=== PATIENT | female | born 2000 | race Caucasian/White ===

== ENCOUNTER 2024-06-02 08:00 | Outpatient (RCR) | payer BC, SELFPAY ==
[2024-06-04 11:07] VITALS: BP 131/89; PULSE 78
== END 2024-06-25 23:59 ==
LOC: BHIOP 08:00
PROVIDERS: PCP Nurse Practitioner Primary Care; Referring Provider Psychiatry & Neurology Psychiatry; Visit Provider Psychiatry & Neurology Psychiatry
DX: F33.2 Major depressive disorder, recurrent severe without psychotic features (principal); F43.10 Post-traumatic stress disorder, unspecified; F42.9 Obsessive-compulsive disorder, unspecified; F63.3 Trichotillomania
CPT/HCPCS: S9480; 90834; 90837; 90853

== ENCOUNTER 2024-06-26 07:34 | Outpatient (RCR) | payer BC, SELFPAY ==
[2024-06-26 00:44] VITALS: BP 131/89; PULSE 78
== END 2024-07-16 12:41 | disposition home or self-care (01) ==
LOC: BHIOP 07:34
PROVIDERS: PCP Nurse Practitioner Primary Care; Referring Provider Psychiatry & Neurology Psychiatry; Visit Provider Psychiatry & Neurology Psychiatry
DX: F33.2 Major depressive disorder, recurrent severe without psychotic features (principal); F43.10 Post-traumatic stress disorder, unspecified; F42.9 Obsessive-compulsive disorder, unspecified; F63.3 Trichotillomania
CPT/HCPCS: S9480; 90837; 90853

== ENCOUNTER 2024-11-17 08:00 | Outpatient (RCR) | payer BC, SELFPAY ==
--- NOTE | 2024-11-17 10:15 | BH.SGPN.GN ---
Behaviors/Verbalizations/Mental Status: []Pt alert and oriented, casually dressed and groomed. Eye contact good. Motor activity appropriate. Speech within normal limits. Affect congruent, mood euthymic. Thoughts linear, logical, no signs of hallucinations or delusions. Client Response/Progress/Benefit: [] Pt participated during small group discussions. Attentive during psychoeducation about defense mechanisms. Showed engagement during small group discussions and helped group identify which defense mechanisms were maladaptive, adaptive, or ?somewhere in the tariq.? Pt worked with small group on identifying how each defense mechanism can impact mental health and gave examples. Group was mostly educational and pts discussed the different types of defense mechanisms. Pt reported benefits from identifying examples of different defense mechanisms and normalizing why they are used. Seemed to benefit from gaining awareness about the different defense mechanisms. Pt to continue IOP tx to prevent decompensation, improve distress tolerance skills, and improve daily functioning. ??? Narrative Note: []
--- NOTE | 2024-11-17 11:15 | BH.SGPN.GN ---
Behaviors/Verbalizations/Mental Status: []Pt alert and oriented, casually dressed and groomed. Eye contact good. Motor activity appropriate. Speech within normal limits. Affect congruent, mood content. Thoughts linear, logical, no signs of hallucinations or delusions. Client Response/Progress/Benefit: [] Pt responded well to session, participating in activity and small group discussion. Group reviewed the rest of the defense mechanisms and discussed how these are adaptive, maladaptive, or somewhere in the tariq. Pt's defense mechanisms included displacement and projection. Shared that these reinforce unhealthy coping mechanisms. Pt listened to portable machine cutter teach different skills to help pt?s cope with or change their defense mechanisms. Pt appeared to benefit from gaining insight to the different defense mechanisms and learning coping skills. Shared wanting to begin practicing more awareness of when using these defense mechanisms. Pt will continue IOP tx to prevent decompensation, improve distress tolerance skills, and increase emotion regulation. Narrative Note: []
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
--- NOTE | 2024-11-17 13:55 | BH.MTP ---
Master Treatment Plan Patient Information Program Physician:: Dr. Juan Pablo Warner Primary Therapist:: Kayleen REZA Psychiatric Diagnoses Psychiatric Diagnoses:: Major depressive disorder, recurrent, severe without psychosis F 33.2; PTSD; OCD; Trichotillomania (F63.3) Diagnosis Code(s):: F 33.2 Estimated LOS Estimated LOS (in weeks):: 6 Problem/Goal #1 Problem/Goal #1 Stated Goal:: Pt will decrease depressive symptoms, hopelessness, worthlessness, and negative self-talk. Description of Barriers: Pt has numerous psychosocial stressors that have been impacting pt and her over the year and pt feels like we can't get a break. Pt feels hopeless and has lost motivation. Pt has a strained relationship with her father and her 's family. Pt has limited support outside her . Functional Impact: Pt is a 24-year-old female with a history of MDD, OCD, and trichotillomania. Pt had completed [facility] in June 2024 and pt returns to [facility] following a referral from crisis due to suicidal ideations and worsening depression. Pt has evaluated by crisis on 10/28/24 while pt was at the ER at [place]. Pt's worsening symptoms have been triggered by financial stress, issues with her father, issues with her in-laws, and health issues. At admission, pt endorses a depressed mood, lack of motivation, lack of energy, loss of interest, passive SI, hopelessness, and crying spells. Pt reports inability to complete her ADLs and pt has not been able to work due to her worsening symptoms. Goal Relevant Strengths/Supports: Pt has support from her and he is her biggest protective factor. Pt has done well in therapy in the past. Objectives Objective #1: Stated Objective: Pt will learn and utilize 2-3 healthy coping strategies to better manage depressive symptoms as shown by a decrease of DMS-5 symptoms for depression and suicidal ideations. Interventions: Through group and individual sessions, therapist will help pt identify triggers and warning signs of depression and guilt including emotional, physical, and behavioral changes. Therapist will teach pt various coping skills to manage symptoms and give pt tangible resources to use to regulate emotions. Therapist will use cognitive restructuring techniques and help pt gain awareness of negative thoughts that reinforce guilt and depression. Therapist will provide psychoeducation on maintenance cycles and help pt learn ways to break unhealthy maintenance cycles. Therapist will help pt incorporate behavioral activation and assist pt in setting SMART goals. Discharge Criteria: Pt will have met this goal when can report learning and using at least 2 coping skills to manage depressive symptoms and reduce isolation. Additionally, pt will have met this goal when pt's DSM-5 scores for depression decrease. Target Date: 12/29/24 Review Date: 12/08/24 Status: open Objective #2: Stated Objective: Pt will identify at least 2-3 negative self-talk messages used to reinforce negative core beliefs, worthlessness, and hopelessness and replace thoughts with balanced, realistic messages. Interventions: Therapist will help pt identify distorted, negative beliefs about self and replace with more realistic, affirmative messages. Therapist will use CBT and DBT to help pt increase insight to the connection between thoughts, emotions, and behaviors. Therapist will encourage pt to practice thought challenging. Discharge Criteria: Pt will have achieved this goal when can verbalize at least 2 cognitive distortions and effectively replace those thoughts with affirmative messages. Target Date: 12/29/24 Review Date: 12/08/24 Status: open Problem/Goal #2 Problem/Goal #2 Stated Goal:: Will reduce anxiety symptoms and hair pulling through increasing emotional regulation and distress tolerance skills Description of Barriers: Pt has numerous psychosocial stressors that have been impacting pt and her over the year and pt feels like we can't get a break. Pt feels hopeless and has lost motivation. Pt has a strained relationship with her father and her 's family. Pt has limited support outside her . Functional Impact: Pt is a 24-year-old female with a history of MDD, OCD, and trichotillomania. Pt had completed IOP in June 2024 and pt returns to [facility] following a referral from crisis due to suicidal ideations and worsening depression. Pt has evaluated by crisis on 10/28/24 while pt was at the ER at [place]. Pt's worsening symptoms have been triggered by financial stress, issues with her father, issues with her in-laws, and health issues. At admission, pt endorses a depressed mood, lack of motivation, lack of energy, loss of interest, passive SI, hopelessness, and crying spells. Pt reports inability to complete her ADLs and pt has not been able to work due to her worsening symptoms. Goal Relevant Strengths/Supports: Pt has support from her and he is her biggest protective factor. Pt has done well in therapy in the past. Objectives Objective #1: Stated Objective: Pt will identify 2-3 anxiety/hair pulling triggers and 2 coping skills to use when feeling anxious or overwhelmed to manage anxiety as shown by reducing DSM-5 scores for anxiety Interventions: Therapist will provide education on anxiety, avoidance behaviors, and maintenance cycles. Therapist will help pt explore personal symptoms and warning signs of anxiety and Trichotillomania. Therapist will teach pt coping skills to improve emotional regulation, mindfulness, and distress tolerance to help pt cope with anxiety in the moment. Discharge Criteria: Pt will have accomplished this goal when she can identify at least 2 triggers and report using 2 coping skills to manage anxiety. Additionally, pt will have accomplished this goal AEB reduction of DSM-5 scores for anxiety Target Date: 12/29/24 Review Date: 12/08/24 Status: open Objective #2: Stated Objective: Pt will increase ability to manage stressors and anxiety by gaining 2-3 distress tolerance skills. Interventions: Through group and individual therapy, pt will learn various coping skills to help manage stress and anxiety. Therapist will utilize DBT distress tolerance skills to increase awareness and give pt tools to more effectively manage anxiety. Therapist will provide psychoeducation on emotional regulation and help pt identify unhealthy coping skills he wants to change. Discharge Criteria: Pt will have accomplished this goal when can report improved ability to manage stressors and identify at least 2 distress tolerance skills. Target Date: 12/29/24 Review Date: 12/08/24 Status: open
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
--- NOTE | 2024-11-17 15:46 | BH.COMM_ITS ---
Communication Note Communication with Client Communication Note: Met with pt to complete initial paperwork. Discussed case with Dr. Warner and pt will be admitted to [facility] tx with a diagnosis of F 33.2 MDD, recurrent, severe, without psychosis.
--- NOTE | 2024-11-20 09:05 | BH.SGPN.GN ---
Behaviors/Verbalizations/Mental Status: [] Eye contact is good. Motor activity is appropriate. Appearance is casual. Speech is Appropriate. Mood is euthymic. Affect is full. Thoughts are linear and logical. No evidence of psychosis. Reviewed daily check in sheet and pt reports 2/5 for suicidal thoughts. Client Response/Progress/Benefit: [] Pt was an active participant in group discussions. Attentive. Daily symptom tracker notes 5/5 for anxiety and 4/5 for depression. Tearful throughout check-in. She shared difficulties with extended support due in large part to disagreements on lutheran. She has set boundaries and feels they are not respecting them. This has caused significant tension. Pt believes that she is perceived as mean and as an instigator as she can often be direct in her conversation which can be misperceived. Proud of herself for utilizing skills during this conflict such as distraction and reframing. She relies heavily on her as support. She struggles with her thoughts when she is alone however yesterday was able to effectively manage negative thoughts. Increase confidence and resilience. Peers provided support, encouragement, and feedback which was helpful. Peers also shared similar experiences and empathized. Narrative Note: []
--- NOTE | 2024-11-20 10:15 | BH.SGPN.GN ---
Behaviors/Verbalizations/Mental Status: [] Eye contact is good. Motor activity is appropriate. Appearance is casual. Speech is Appropriate. Mood is dysthymic. Affect is congruent. Thoughts are linear and logical. No evidence of psychosis. Client Response/Progress/Benefit: [] Client engaged during group session as evidenced by contributions during group discussions, appearing to listen to others, and taking notes. Client engaged in discussion about barriers that keep people from having difficult conversations. Group identified potential reasons individuals avoid difficult conversations which included; feeling uncomfortable, reaction of others, fear, and avoiding conflict. Group also identified benefits to having crucial conversations. Pt identified things they do that impact their communication as communicating out of emotion or shutting down. Client seemed to benefit from increased awareness and education about importance of having difficult conversations and recognizing the impact of avoiding such conversations. Client to continue IOP to prevent decompensation, increase healthy coping, and improve functioning. Narrative Note: []
--- NOTE | 2024-11-20 11:15 | BH.SGPN.GN ---
Behaviors/Verbalizations/Mental Status: []Pt alert and oriented, casually dressed and groomed. Eye contact good. Motor activity appropriate. Speech within normal limits. Affect constricted, mood euthymic and anxious. Thoughts linear, logical, no signs of hallucinations or delusions. Client Response/Progress/Benefit: [] Pt was an active participant, engaged in activities and discussion. Pt able to identify ways they negatively contribute to crucial conversations and pt was engaged during psychoeducation of the different ways to build interpersonal effectiveness skills. Pt and peers practiced mirroring and active listening in partners. Group reviewed DEAR [employer] and used the handout to help map out how they would like a crucial conversation in their life to go. Pt shared she has learned today that she is allowed to ?call out my struggles? when in a crucial conversation to help clarify and be transparent. Pt wants to have a crucial conversation with family this weekend. Pt appeared to benefit from learning and practicing interpersonal effectiveness skills. Pt will continue IOP tx to prevent decompensation, improve daily functioning, and increase distress tolerance skills. Narrative Note: []
--- NOTE | 2024-11-21 07:42 | PCM.BH.PN_ITS ---
Intake Vital Signs 06/04/24 11:07 Height 5 ft 4 in Intake Allergies fluoxetine (From Prozac) Allergy (Verified 06/04/24 10:57) Hives risperidone (From Risperdal) Allergy (Verified 06/04/24 10:57) Swelling Medications ?Medication ?Instructions ?Recorded ?Confirmed ?Type hydroxyzine pamoate 25 mg capsule 25 mg PO Q8H PRN anx iety 06/04/24 06/04/24 History venlafaxine 150 mg 150 mg PO DAILY 30 days #30 caps 06/04/24 Rx capsule,extended release 24 hr (Effexor XR) aripiprazole 2 mg tablet (Abilify) 2 mg PO DAILY 30 da ys #30 tabs 06/18/24 Rx HPI () History of Present Illness HPI: Hellen Ball is a 24 year old female who presents today for new patient evaluation. Sleep: Interest: Guilt: Energy: Concentration: Appetite: Psychomotor: Suicide: Memory: Anxiety: Obsessions: Compulsions: Chantal: PTSD: Psychosis: denies history of auditory or visual hallucinations, denies disorga nized thoughts, denies disorganized speech Developmental History Developmental History: Siblings - Born/Raised - Education - Living Situation - Legal Issues - Employment - Other Substance Use History Nicotine- Alcohol- Marijuana- Stimulants- Opioids- Other- Visit Details Comments: Spent a total of [ ] minutes on the date of the service which included [ ].
--- NOTE | 2024-11-21 07:44 | BH.DR.ITP ---
Initial Treatment Plan Patient Information Visit Information: ADMISSION DATE: 11/21/2024 EXPECTED LOS: 4-6 weeks Problems/Symptoms Problem #1:: Depression Symptom:: Low mood, interpersonal conflict, poor motivation, low energy Problem #2:: Anxiety Symptom:: Panic type symptoms, nervousness, poor sleep Problem #3:: OCD Symptom:: Hair pulling, routine behavior, obsessions, compulsions
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
--- NOTE | 2024-11-21 09:05 | BH.SGPN.GN ---
Behaviors/Verbalizations/Mental Status: [] Eye contact is good. Motor activity is appropriate. Appearance is casual. Speech is Appropriate. Mood is euthymic. Affect is full. Thoughts are linear and logical. No evidence of psychosis. Reviewed daily check in sheet and pt reports 1/5 for suicidal thoughts which is within established baseline. Client Response/Progress/Benefit: [] Pt was an active participant in group discussions. Attentive. Daily symptom tracker notes 5/5 for anxiety and 4/5 for depression, though positive throughout check-in. Did well to identify 2 mental health wins, which included going to her sister?s volleyball game rather than isolating. Additional win noted as talking with her aunt and step-mom while there. Explained that she is estranged from her father and so was nervous about seeing her step-mom. Went better than expected and pt expressed pride in her use of distress tolerance. Stressor noted as having to spend time with her in-laws, whom pt is not getting along with, this weekend. Identified plans to discuss limiting her exposure to them with her . Appeared to benefit from provided support, encouragement, and feedback. Will continue IOP tx to improve self-confidence, assertive communication, and prevent decompensation. Narrative Note: []
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
[2024-11-21 12:42] VITALS: BP 137/89; PULSE 74
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
--- NOTE | 2024-11-25 11:10 | BH.SGPN.GN ---
Behaviors/Verbalizations/Mental Status: []Client alert and oriented, casually dressed and groomed. Eye contact good. Motor activity appropriate. Speech within normal limits. Affect congruent, mood anxious. Thoughts linear, logical, no signs of hallucinations or delusions Client Response/Progress/Benefit: [] Pt responded well to session, attentive. Did well to process activity and work with group to relate the strategies used to overcome barriers in the activity to managing change in own life. Pt identified a change they would like to make is better emotion regulation. Pt identified currently being in action stage for this change. Pt stated goal is to continue to practice skills. Appeared to benefit from identifying a small goal to work towards. Pt will continue IOP tx to prevent decompensation, improve daily functioning, and gain healthy coping skills. Narrative Note: []
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
== END 2024-11-25 23:59 ==
LOC: BHIOP 08:00
PROVIDERS: PCP Nurse Practitioner Primary Care; Referring Provider Student in an Organized Health Care Education/Training Program; Visit Provider Student in an Organized Health Care Education/Training Program
DX: F33.2 Major depressive disorder, recurrent severe without psychotic features (principal); F43.10 Post-traumatic stress disorder, unspecified; F63.3 Trichotillomania; F42.9 Obsessive-compulsive disorder, unspecified
CPT/HCPCS: S9480; 90832; 90834; 90853

== ENCOUNTER 2024-11-26 08:06 | Outpatient (RCR) | payer BC, SELFPAY ==
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
--- NOTE | 2024-11-26 10:10 | BH.SGPN.GN ---
Behaviors/Verbalizations/Mental Status: []Eye contact is good. Motor activity is appropriate. Appearance is casual. Speech is Appropriate. Mood is engaged. Affect is congruent. Thoughts are linear and logical. No evidence of psychosis. Client Response/Progress/Benefit: [] Pt receptive to session AEB listening attentively to others and taking notes. Pt attentive and contributed throughout psychoeducation on the cognitive triangle and maintenance cycles. Pt engaged during group discussion reviewing the impact of daily activities and behaviors in either reinforcing unhealthy maintenance cycles and depression or assisting in reducing symptoms (?down? vs ?up? activities). Pt participated during interactive discussion in which pt identified their own common up activities (being with her and practicing self-care) and down activities (isolating and not getting out of bed). Appeared to benefit from increased awareness of current behaviors and impact these have on mental health. Will continue IOP to prevent decompensation, improve daily functioning, and increase distress tolerance. ??? Narrative Note: []
--- NOTE | 2024-11-26 14:42 | BH.MDN ---
Multi-Disciplinary Note Note 45-min Individual: Time Started:: 11:20 Date: 11/26/24 Purpose of session/treatment goals addressed:: To review homework and work on behavioral activation skills. Eye Contact:: Good Motor Activity:: Appropriate Appearance:: Neat Speech:: Appropriate Mood:: Euthymic Affect:: Congruent Thoughts:: Linear, Logical and No evidence of hallucinations/delusions noted Staff Interventions:: thought challenging, CBT techniques, strengths perspective, taught coping skills (acceptance skills.) and other (reviewed homework and set goal to reach out to her friend) Client Response:: Pt responded well to session, open to meeting with therapist. Pt reports she went home yesterday and made my list of support we need. Pt shared that a lot of the support she needs is someone to be with me while I clean and make phone calls. Pt stated that she knows that once she starts these things, she will be able to get them accomplished. However, pt is currently experiencing lack of motivation most of the day, so it has been difficult to start. Pt shared it is also challenging at times because her best friends live out of state and she does not know where to go to build support. Processed barriers and potential ideas to overcome these barriers. Pt shared she would be willing to Facetime with one of her best friends while cleaning as this would motivate pt to get started. Pt also shared she is interested in further exploring spiritual communities, but pt feels that her moral and need for justice OCD is keeping her stuck from going to a lutheran. Pt gave the example of if I go to a lutheran that accepts all religions, does that mean I accept all the teachings from all the religions? Discussed acceptance skills and dialectical thinking that might help with this barrier. Pt acknowledges that she can work on sitting with the uncomfortable of the tariq instead of accepting all or nothing thoughts. Pt's mood was more hopeful today and pt left session with motivation per her report. Risks/Concerns:: Pt reports still having passive suicidal ideations, but pt reports feeling more hopeful today. Pt denies active SI, plan, or intent. Pt was future oriented during session and looking forward to talking to a friend. Progress Toward Goals/Plan:: Pt is responding well to IOP tx, pt has been receptive to ideations and pt reports benefitting from the social aspect. Pt's symptoms continue to interfere with her daily functioning and pt's has awareness that her perspective can shift from positive to negative quickly. Pt receptive to plan to reach out to a friend today and pt willing to work on small cleaning goals. Pt will continue IOP tx to prevent decompensation, improve daily functioning, and increase distress tolerance. Time Stopped:: 12:00
--- NOTE | 2024-12-01 09:05 | BH.SGPN.GN ---
Behaviors/Verbalizations/Mental Status: [] Eye contact is good. Motor activity is appropriate. Appearance is casual. Speech is Appropriate. Mood is depressed and anxious. Affect is congruent. Thoughts are linear and logical. No evidence of psychosis. Reviewed daily check in sheet and no reports of suicidal ideations or intent. Client Response/Progress/Benefit: [] Pt was an active participant in group discussions. Attentive. Daily symptom tracker notes 5 for depression and anxiety as well as 5 for self-harm urges. Able to identify mental health wins and healthy habits. Shared with the group that this weekend was a anniversary. Discussed her strategies for managing triggers and grief to prevent decompensation. She appears to have improved since last's week significant distress. Spent the weekend with support and completed self-care feeling accomplished. Putting effort into healthy strategies and healthy sleep routine. Mood today is indifferent. Benefited from group support, encouragement, and feedback. Will continue in IOP to maintain safety, prevent decompensation, increase healthy functioning, and improve functioning. Narrative Note: []
--- NOTE | 2024-12-01 10:15 | BH.SGPN.GN ---
Behaviors/Verbalizations/Mental Status: [] Pt alert and oriented, casually dressed and groomed. Eye contact good. Motor activity appropriate. Speech within normal limits. Affect congruent, mood dysthymic. Thoughts linear, logical, no signs of hallucinations or delusions. Client Response/Progress/Benefit: [] Pt participated in group discussions. Attentive during psychoeducation on the CBT [place] (Thoughts, Behaviors, Emotions). Engaged in group discussion on how thoughts and behaviors can contribute to maintaining adverse feelings, such as depression, anxiety, and irritability. Completed worksheet in which pt identified obstacles and/or thoughts that are keeping them stuck. Shared obstacles that included; self-image issues, fear of failure, procrastination, and fear of judgement. Pt benefited from increased awareness of the basis of CBT therapy as well as specific thoughts that are impacting pt's progress. Will continue in IOP to prevent decompensation, increase healthy coping, and improve functioning. Narrative Note: []
--- NOTE | 2024-12-01 11:15 | BH.SGPN.GN ---
Behaviors/Verbalizations/Mental Status: []Pt alert and oriented, casually dressed and groomed. Eye contact good. Motor activity appropriate. Speech within normal limits. Affect congruent, mood hopeful. Thoughts linear, logical, no signs of hallucinations or delusions. Client Response/Progress/Benefit: [] Pt responded well to session, contributing to discussion and attentive throughout. Pt identified a negative thought that has kept them stuck. Pt's thought was someone else can do it better?. Pt reported when they think this way, pt reassurance seeks and isolates which leads to shutting down. Pt worked to reframe the thought by finding more rational, realistic ways to look at the thoughts and then processed them within group setting. Pt reframed the thought to ?I do things my unique way that no one else could match and I?m allowed to be bad at things.? Pt appeared to benefit from practicing challenging negative thinking with peers and gaining coping skills. Pt will continue IOP tx to prevent decompensation, improve distress tolerance skills, and improve self-confidence. Narrative Note: []
--- NOTE | 2024-12-03 09:00 | BH.SGPN.GN ---
Behaviors/Verbalizations/Mental Status: [] Pt alert and oriented, Neatly dressed and groomed. Eye contact good. Motor activity appropriate. Speech within normal limits. Affect congruent, mood calm. Thoughts linear, logical, no signs of hallucinations or delusions. Reviewed pt?s symptom tracker, 2/5 with 5 being severe for risk for suicidal ideation, indicates a 1/5 for plan, and intent to kill self. Pt does not appear to be imminent risk to harm self.12/03/24. Client Response/Progress/Benefit: []Pt was an active participant in group discussions. Attentive. Per patients daily symptom tracker, pt indicates a 4/5 for depression and a 3/5 for anxiety, with 5 being severe. Pt shared positive mental health updates, stating that she has been better at doing her dishes and cooking at home more often. Pt reported that this is good for her and her as it makes them more productive and saves them money. Pt's reported stressor was the potential for family drama as she has been talking with her uncle about her family frustrations. She reports being worried that other family member will be upset if they know that she has been talking about them. However, she reported that it was nice to have the support and connection. Pt was supportive and attentive to others in the group. Pt seemed to benefit from support from peers. Will continue IOP tx to promote healthy coping mechanisms, reduce negative thinking patterns, and improve self confidence.
--- NOTE | 2024-12-08 10:15 | BH.SGPN.GN ---
Behaviors/Verbalizations/Mental Status: [] Eye contact is good. Motor activity is appropriate. Appearance is casual. Speech is Appropriate. Mood is content. Affect is congruent. Thoughts are linear and logical. No evidence of psychosis. Client Response/Progress/Benefit: [] Pt engaged in session AEB listening attentively to others and providing input throughout. Pt engaged in activity, able to connect how it can be uncomfortable and difficult to practice acceptance when situations are out of one?s own control. Identified what they are struggling to accept in personal life. Worked with peer group to define acceptance and identify the benefits that acceptance can bring. Benefits included; reduce anxiety, reduced stress, helps one to focus on situations we can change, and decreased negative self-talk. Seemed to benefit from increased awareness of the meaning as well as the importance of acceptance. Will continue in IOP to improve emotion regulation, challenge distortions and negative self-talk, and prevent decompensation. Narrative Note: []
--- NOTE | 2024-12-08 11:15 | BH.SGPN.GN ---
Behaviors/Verbalizations/Mental Status: []Pt alert and oriented, casually dressed and groomed. Eye contact good. Motor activity appropriate. Speech within normal limits. Affect congruent, mood engaged. Thoughts linear, logical, no signs of hallucinations or delusions. Client Response/Progress/Benefit: [] Pt responded well to session AEB taking notes and contributing to discussion throughout. Pt engaged as group continued discussion on acceptance and the mental health benefits of practicing acceptance. Pt and peers identified what makes acceptance challenging and pt completed a self-reflection exercise on what is hard to accept in pt's life. Pt identified something that is currently hard to accept as ?not having the life I envisioned.? Pt stated by not accepting this it leads to continued depression and a ?give up attitude? along with envy and anger. Group identified strategies to increase acceptance. Pt noted wanting to work on ?living in the tariq and being willing to adapt? as a strategy for improving acceptance. Pt appeared to benefit from gaining insight and learning strategies to increase acceptance. Pt will continue IOP tx to promote use of healthy coping skills, combat distortions, and improve daily functioning. Narrative Note: []
--- NOTE | 2024-12-08 12:11 | BH.MDN_ITS ---
Multi-Disciplinary Note Note 45-min Individual: Time Started:: 09:15 Date: 12/08/24 Purpose of session/treatment goals addressed:: To work on goal #1 of pt's tx plan. Eye Contact:: Good Motor Activity:: Appropriate Appearance:: Casual Speech:: Appropriate Mood:: Euthymic and Other (nervous) Affect:: Congruent (smiling most of session, but also tearful about a stressor.) Thoughts:: Linear, Logical and No evidence of hallucinations/delusions noted Staff Interventions:: thought challenging, CBT techniques, mindfulness skills, strengths perspective, goal setting, taught coping skills (acceptance skills ) and other (gave pt homework to identify who she is not to help pt identify who she is.) Client Response:: Pt responded well to session, open to meeting with therapist. Pt reports she is doing mentally better today, but her physical healt h has been a struggle. Pt feels that she is often dismissed by medical officer psychiatry, but pt shared someone suggested functional medicine and pt might explore this. Pt noted she cleaned around her house and has talked more to her best friend which is helpful. Pt shared she is still struggling a lot with not having a community and supports to lean on outside of her . Last session we discussed pt's interest in spirituality and possibly attending a unitarian m[employer]onism, but pt felt that her all or nothing thinking and need for certainty were holding her back. Discussed need for certainty as a trait of OCD and anxiety in general. Therapist taught pt how to practice acceptance to sit with the discomfort of not having certainty. Pt reminded that uncertainty is not bad it is just tariq. Pt shared she feels that if she is not certain she will be judged for her beliefs or lack of beliefs. Pt responded well to gentle thought challenging and encouraged pt to utilize self-compassion as pt is still deconstructing her beliefs and figuring out who she is. Pt became tearful as pt has made some realizations about herself that are causing some cognitive dissonance. Pt responded well to emotional support and dialectical perspective by therapist. Pt receptive to the homework noted above. Risks/Concerns:: Pt denies any suicidal ideation, plan, or intent. Pt denies any thoughts of . Progress Toward Goals/Plan:: Pt is responding well to IOP tx, pt has been receptive to ideations and pt reports benefitting from the social aspect. Pt's symptoms continue to interfere with her daily functioning, but pt feels that she is making progress with accomplishing tasks at home. Pt is also working on thought challenging and setting boundaries. Pt will continue IOP tx to prevent decompensation, improve daily functioning, and increase distress tolerance. Time Stopped:: 10:07
--- NOTE | 2024-12-10 11:29 | BH.MTP_ITS ---
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 Pt consistently completes homework provided from individual counselin g. Pt contributes actively during group discussions, takes notes, appears to listen to others, and engages in group activities. Pt's mood is starting to become more stable, but pt recognizes that she still struggles with dysregulation that can hinder pt's functioning. Pt's DSM-5 overall scores decreased by 20% since admission. Pt's score for depression has decreased by 13% since admission and anxiety has decreased by 42%. Status of Current Problems and Symptoms: Pt continues to report that her depression, anxiety, and OCD impact her on a daily basis. Pt's primary stressors include health symptoms, finances, and the state of the world. Pt has made progress in combatting distortions, setting boundaries with family, and being more active in things she is passionate about. Pt is anxious about losing her health insurance and this is a significant stressor as pt is worried about continued mental health care. Progress Problem #1: Problem Name:: Depression, hopelessness, negative view of self. Status of Goals:: Objective 1-in progress. Pt's depression scores have decreased by 13% since admission. Ot has improved with using opposite action and she has been talking to her best friend more often which is improving her mood. Pt is working on setting realistic goals. Objective 2- in progress. Pt is able to catch distorted self-talk and she is working on using self-compassion and dialectical thinking. Team Recommendations:: Team recommends continued goals and objectives to reinforce skills and reduce symptoms. Team recommends pt continue working on combating distortions, practicing self-compassion, and living according to values she has identified. Problem #2: Problem Name:: OCD and Anxiety Status of Goals:: Objective 1- in progress. Pt reports a 42% reduction in anxiety since admission and reports using opposite action, calming skills, and self-talk on a consistent basis. Objective 2- in progress. Pt is working on redu cing safety behaviors and becoming more trusting of herself. Pt is also working on building knowledge about OCD and increasing resilience. Team Recommendations:: Treatment team encourages pt to continue working on distress tolerance skills including doing more things independently and building resilience. Pt and therapist will also begin working on OCD as pt's depression is reducing.
--- NOTE | 2024-12-11 09:00 | BH.SGPN.GN ---
Behaviors/Verbalizations/Mental Status: [] Eye contact is good. Motor activity is appropriate. Appearance is casual. Speech is Appropriate. Mood is depressed and anxious. Affect is congruent. Thoughts are linear and logical. No evidence of psychosis. Client Response/Progress/Benefit: [] Pt was an active participant in group discussions. Attentive. Able to identify mental health wins and healthy habits. Accomplishing tasks. ? I?m not trusting my thoughts?. ? I?m in my head a lot?. ? I feel like bad things are happening behind the scenes?. She reports several obessive and intrusive thoughts which are impacting her functioning. She shared example of eating a piece of food this morning and having an intrusive thought that their was mold on the food. Elaborated on how she struggles to get this thought our od her head. Benefited from group support, encouragement, and feedback. Will continue in IOP to prevent decompensation, stabize mood, increase healthy coping, maintain safety, and improve functioning. Narrative Note: []
--- NOTE | 2024-12-11 10:10 | BH.SGPN.GN ---
Behaviors/Verbalizations/Mental Status: [] Eye contact is good. Motor activity is appropriate. Appearance is casual. Speech is Appropriate. Mood is content. Affect is congruent. Thoughts are linear and logical. No evidence of psychosis Client Response/Progress/Benefit: [] Pt receptive of session, actively engaged throughout AEB taking notes, providing input, and contributing in small group discussion. Appeared to connect with group topic of automatic thoughts and cognitive distortions, as well as the impact of thought patterns on mental health, coping behaviors, and relationships. This particular group is very heavy on psychoeducation and pt appeared to connect with distortions and how they can impact functioning. Identified struggling with all or nothing thinking and catastrophizing distortions. Pt appeared to benefit from gaining insight on distorted thinking patterns and how this impacts overall mental health. Will continue IOP to increase emotion regulation, challenge negative thoughts, and prevent decompensation.
--- NOTE | 2024-12-11 11:10 | BH.SGPN.GN ---
Behaviors/Verbalizations/Mental Status: [] Eye contact is good. Motor activity is appropriate. Appearance is casual. Speech is Appropriate. Mood is dysthymic and engaged. Affect is congruent. Thoughts are linear and logical. No evidence of psychosis. Client Response/Progress/Benefit: [] Pt was an active participant and responded well to session AEB input and examples during group activity. Group discussed and practiced methods of reframing cognitive distortions. Pt participated in identifying cognitive distortions when examples were provided. Pt discussed in group the different strategies to overcome the distortions. Pt identified cognitive distortion they used most often and made plan to identify and challenge thoughts that contribute to it as homework over the next couple of days. Pt reports having to use thought challenging today. Pt did well in small group during experiential activity and helped group identify answers. Will continue tx to reduce isolation, improve self-compassion, and combat negative thinking patterns. ? Narrative Note: []
--- NOTE | 2024-12-12 07:41 | PCM.BH.PN_ITS ---
Intake Vital Signs 11/21/24 12:42 12/12/24 07:41 Height 5 ft 4.17 in 5 ft 4.17 in Weight: 200 lb BP 137/89 H Pulse 74 Intake Visit Reasons: Follow-up Allergies fluoxetine (From Prozac) Allergy (Verified 11/21/24 12:25) Hives risperidone (From Risperdal) Allergy (Verified 11/21/24 12:25) Swelling Medications ?Medication ?Instructions ?Recorded ?Confirmed ?Type venlafaxine 75 mg capsule,extended 75 mg PO DAILY 30 d ays #30 caps 11/21/24 Rx release 24 hr bupropion HCl 150 mg 24 hr tablet, 150 mg PO QAM #30 t abs 12/12/24 Rx extended release (Wellbutrin XL) HPI () History of Present Illness History provided by: patient Chief complaint: Depression/anxiety HPI: Elly Ball is a 24 year old female who presents today for follow up evaluation. Patient reports that she has been Up and down. Reports to be somewhat similar to what she has been previously. Has been recognizing that mood symptoms are worse the week prior to her period. Has been taking 1200 mg BID of NAC and has been doing consistently. Feels like the distress associated with her obsessions are better. Feels like she can't trust her own thoughts at time. Give example of questioning her feelings and distinguishing obsessive thinking or actual beliefs. Still having some difficulty with motivation. Did find a list of old medications including seroquel, risperidone, and aripiprazole. She does have concern that she may have ADHD. Review of systems () Constitutional Denies: fever(s), chills, change in weight or fatigue Eyes Denies: change in vision or blurry vision Ears, Nose, Mouth, Throat Reports: vertigo; Denies: throat pain, neck pain or change in hearing Cardiovascular Denies: chest pain, palpitations or dyspnea Respiratory Denies: dyspnea, cough or wheezing Gastrointestinal Reports: nausea; Denies: abdominal pain, vomiting, diarrhea or constipation Genitourinary Denies: dysuria or urinary frequency Musculoskeletal Denies: back pain, neck pain, joint pain or muscle weakness Integumentary/Breast Denies: rash or new lesions Neurological Reports: dizziness and vertigo; Denies: headache(s) or confusion Endocrine Denies: fatigue or excessive sweating Hematologic/Lymphatic Denies: easy bruising or easy bleeding Allergic/Immunologic Denies: wheezing Exam Mental Status Exam- Psych () Appearance casually dressed and no apparent distress Attitude cooperative and engaged Activity/Motor Behavior MSE activity/motor behavior finding no adventitious movements Speech regular rate, regular volume, regular prosody and other (Verbose) Mood anxious Affect restricted Thought Process linear, logical and coherent Thought Content no delusions and no hallucinations Suicidal Ideation none Homicidal Ideation none Attention intact Concentration intact Sensorium/Orientation awake, alert and oriented x3 Memory/Cognition other (appropriate for stated age) Insight fair Judgement good Assessment & Plan () Assessment & Plan (1) Major depressive disorder, recurrent severe without psychotic features: Plan: - Will start Wellbutrin 150 mg every day ?Patient was informed of the risks, benefits and likely side effects of Wellbutrin. These side effects include but are not limited to appetite suppress ion, headache, diaphoresis, tachycardia, nausea, and insomnia. Wellbutrin can lower the seizure threshold, if you have a history of seizure disorder or have a seizure while taking the medication, please discontinue the medication and inform office immediately. ? Continue N-acetylcysteine 1200 mg twice a day for trichotillomania and OCD behavior ? Continue venlafaxine 75 mg every day could consider alternative in the future pending response (2) PTSD (post-traumatic stress disorder): Plan: - See above (3) Trichotillomania: Plan: NAC as above (4) OCD (obsessive compulsive disorder): Plan: NAC as above ? Venlafaxine as above Charges/Coding Multi Select Codes Behavior Health Behavior Health EST Pt E/M: 62038 Est Pt Level IV
--- NOTE | 2024-12-12 09:02 | BH.SGPN.GN ---
Behaviors/Verbalizations/Mental Status: [] Pt alert and oriented, neat and casually dressed and groomed. Eye contact good. Motor activity appropriate. Speech within normal limits. Affect congruent, mood depressed and anxious. Thoughts linear, logical, no signs of hallucinations or delusions. Reviewed pt?s symptom tracker, pt reports suicidal ideation as a 2/5 which is within pt baseline. Denies plan or intention. Client Response/Progress/Benefit: [] Client responded well to session as evidenced by listening attentively to others, providing feedback, and processing with group. Per symptom tracker client reported a 5/5 for depression and a 4/5 for anxiety. Client reported mental health positive as challenging herself to get to group today despite difficulties with fatigue and low mood. Shared using opposite action to do so. Additional win noted as having a crucial conversation with her last night. Stressor noted as the conversation not ending in the way she had hoped for. Client seemed to benefit from support from others and the group environment. Client to continue IOP to maintain safety, improve mood stability, and prevent decompensation. Narrative Note: []
--- NOTE | 2024-12-12 11:10 | BH.SGPN.GN ---
Behaviors/Verbalizations/Mental Status: []Pt alert and oriented, casually dressed and groomed. Eye contact good. Motor activity appropriate. Speech within normal limits. Affect constricted, mood dysthymic. Thoughts linear, logical, no signs of hallucinations or delusions. Client Response/Progress/Benefit: []Pt engaged participant AEB completing self-assessment worksheet and providing input throughout discussion. Participated in group discussion on the various areas of self-care. Pt completed worksheet identifying current self-care practices and what self-care activities pt wants to start using. Pt engaged in self-reflection activity in which pt's were asked to identify one area of self-care they would like to improve upon. Pt reported she would like to work on improving physical self-care by eating healthier. Appeared to benefit from completing the self-care evaluation and gaining insights into current self-care practices, as well as identifying areas in which pt ?would like to improve upon.?Will continue IOP to improve confidence, challenge distorted thoughts, and prevent decompensation.
--- NOTE | 2024-12-15 10:10 | BH.SGPN.GN ---
Behaviors/Verbalizations/Mental Status: []Pt alert and oriented, casually dressed and groomed. Eye contact good. Motor activity appropriate. Speech within normal limits. Affect congruent, mood depressed. Thoughts linear, logical, no signs of hallucinations or delusions. Client Response/Progress/Benefit: [] Pt receptive to session AEB contributing to group discussion, as well as listening attentively to others, and taking notes. Worked with group to brainstorm the positive and negative aspects of stress on physical and mental health as well as the impact of distress on performance, relationships, and mental health. Pt shared their current personal top stressors to be: physical health, infertility, and family issues. Shared when feeling overwhelmed with stress pt tends shut down and cry. Benefited from increased awareness of positive and negative stress as well as how stress impact individuals. Will continue in IOP to prevent decompensation, improve daily functioning, and reduce negative thinking patterns. Narrative Note: []
--- NOTE | 2024-12-15 11:15 | BH.SGPN.GN ---
Behaviors/Verbalizations/Mental Status: []Eye contact is good. Motor activity is appropriate. Appearance is casual. Speech is Appropriate. Mood is euthymic. Affect is congruent. Thoughts are linear and logical. No evidence of psychosis. Client Response/Progress/Benefit: [] Pt was an attentive participant in group discussions and actively engaged during experiential activity. Attentive during psychoeducation on the 4 A's (Avoid, adapt, alter, accept) of coping with stress. Identified one of the 4 A's to address one their top stressors. Participated with peers on identifying the connection between the experiential activity and utilization of stress management skills. Pt shared wanting to work on telling herself ?even if I only did a little progress, that?s still a positive.? Benefited from increased awareness of stress management strategies. Pt will continue IOP to improve mood stability, combat distorted thought patterns, and improve daily functioning. ? Narrative Note: []
--- NOTE | 2024-12-15 14:48 | BH.MDN_ITS ---
Multi-Disciplinary Note Note 45-min Individual: Time Started:: 09:10 Date: 12/15/24 Purpose of session/treatment goals addressed:: To work on goal #1 of pt's tx plan and to practice self-reflection. Eye Contact:: Good and Fair Motor Activity:: Restless (fidgeting with sensory item) Appearance:: Casual Speech:: Appropriate Mood:: Euthymic and Anxious Affect:: Congruent Thoughts:: Linear, Logical and No evidence of hallucinations/delusions noted Staff Interventions:: thought challenging, motivational interviewing, psychoeducation on: (you, me, we), CBT techniques, mindfulness skills, strengths perspective and other (reviewed homework and practiced thought challenging) Client Response:: Pt responded well to session, open to meeting with therapist. Pt reports she has been doing better recently which pt contributed to talking to her best friend more, getting some tasks done at home, and recently pt went to a large community event which reignited my passion. Pt completed her homework from last session which was to identify what I'm not so that pt can start to understand better who she is and what her values are. Pt shared at first she struggled with this because pt wanted to be self-depreciating, but pt was able to challenge herself. From this list, pt gained insight to her strengths (empathy, curiosity, advocate, learner, adventurer) and her weaknesses (dependency on and low motivation). Pt shared one theme she has learned from practicing self-reflection is that she has a desire to travel and she wants to be more independent. Discussed barriers to this and pt became tearful as pt identified her relationship with her . Pt acknowledges her cognitive dissonance sharing he's my one good thing I don't want to lose that. Processed these worries and thoughts and discussed how two things can be true. Pt can learn to be more independent and true to herself without ending a relationship. Pt's homework is to fill out the you, me, we exercise. Risks/Concerns:: Pt denies any suicidal ideation, plan, or intent. Pt denies any thoughts of . Progress Toward Goals/Plan:: Pt is responding well to IOP tx AEB pt's report of practicing skills outside of IOP including opposite action, self- compassion, and seeking support. Pt's DSM-5 symptoms have decreased since admission, however, pt continues to report mood instability and symptoms impacting functioning. Pt shared she is gaining more insight that her symptoms worsen around pt's menstrual cycle and pt plans to talk to Dr. Warner about this. Pt will continue IOP tx to promote mood stability, increase distress tolerance skills, and improve thought challenging. Time Stopped:: 10:00
--- NOTE | 2024-12-22 09:00 | BH.SGPN.GN ---
Behaviors/Verbalizations/Mental Status: [] Pt alert and oriented, Casually dressed and groomed. Eye contact fair. Motor activity appropriate. Speech within normal limits. Affect congruent, mood depressed. Thoughts linear, logical, no signs of hallucinations or delusions. Reviewed pt?s symptom tracker, 3/5 with 5 being severe for risk for suicidal ideation, indicates a 1/5 for plan, and intent to kill self. Pt does not appear to be imminent risk to harm self.12/22/24. Client Response/Progress/Benefit: []Pt was an active participant in group discussions. Attentive. Per patients daily symptom tracker, pt indicates a 4/5 for depression and a 2/5 for anxiety, with 5 being severe. Pt presented as tearful and depressed during the session, talking much less than usual. Pt's first mental health positive was going out for her and her 's 5 year anniversary despite feeling that she wanted to stay home. Pt's other win was showing up to group despite a spike in depressive symptoms. Pt stated her current stressor is family stuff, stating that problems on both sides of her family were causing her to feel alone. Pt became tearful while talking about her stressor and did not elaborate further. Pt was supportive and attentive to others in the group. Pt seemed to benefit from support from peers. Will continue IOP tx to promote healthy coping mechanisms, reduce negative thinking patterns, and prevent decompensation.
--- NOTE | 2024-12-22 10:10 | BH.SGPN.GN ---
Behaviors/Verbalizations/Mental Status: []Pt alert and oriented, casually dressed and groomed. Eye contact good. Motor activity appropriate. Speech within normal limits. Affect congruent, mood anxious. Thoughts linear, logical, no signs of hallucinations or delusions. Client Response/Progress/Benefit: [] Pt took notes and contributed to group discussions. Attentive during psychoeducation on growth mindset. Interactive group discussion on fixed mindset in which group verbalized their current fixed mindsets and how they affect their mental health. Pt shared common fixed mindset thoughts they have. Pt shared a personal fixed thought Why should I even try.? Pt able to connect negative impact fixed thoughts have on functioning. Pt benefited from increased awareness of growth mindset and fixed thoughts and how fixed thoughts impact their mental health. Will continue IOP tx to Increase consistent use of healthy coping skills, improve confidence, and prevent decompensation.
--- NOTE | 2024-12-22 11:10 | BH.SGPN.GN ---
Behaviors/Verbalizations/Mental Status: []Pt alert and oriented, neatly dressed and groomed. Eye contact good. Motor activity appropriate. Speech within normal limits. Affect constricted, mood dysthymic. Thoughts linear, logical, no signs of hallucinations or delusions. Client Response/Progress/Benefit: [] Pt was an active participant during activity and discussion. Pt did well to remain attentive and participate as group worked on identifying characteristics and benefits of adopting a growth mindset. Worked with fellow participants in reframing the example fixed thoughts into growth mindset thoughts. Pt worked on changing own fixed thought. Pt?s reframed thought was ?some people do understand me.? Pt attentive during discussion about different strategies that can help with fostering a growth mindset. Pt appeared to benefit from challenging own thoughts and engaging in the activity. Pt will continue IOP tx to increase distress tolerance skills, improve self-compassion, and reduce avoidance. Narrative Note: []
--- NOTE | 2024-12-23 10:15 | BH.SGPN.GN ---
Behaviors/Verbalizations/Mental Status: []Eye contact is fair. Motor activity is appropriate. Appearance is casual. Speech is Appropriate. Mood is dysthymic. Affect is constricted. Thoughts are linear and logical. No evidence of psychosis. Client Response/Progress/Benefit: [] Pt was an active participant in group discussions. Attentive during psychoeducation on the 4 communication styles (Passive, Passive-Aggressive, Aggressive, and Assertive) and the obstacles to effective communication. Contributed during interactive discussion on the benefits of communicating effectively. Worked well with peers to identify the benefits and disadvantages to the different communication styles. Pt believes that they are primarily passive, but they can be passive-aggressive as well. Benefited from increased understanding of communication styles and how these can impact effective communication. Will continue in IOP to improve daily functioning, combat distortions, and reduce avoidance. Narrative Note: []
--- NOTE | 2024-12-23 13:37 | BH.MDN ---
Multi-Disciplinary Note Note 60-min Individual: Time Started:: 11:30 Date: 12/23/24 Purpose of session/treatment goals addressed:: To work on goal #1 of pt's tx plan and to address barriers to acceptance. Eye Contact:: Fair Motor Activity:: Restless Appearance:: Casual Speech:: Appropriate Mood:: Depressed Affect:: Constricted (tearful) Thoughts:: Linear, Logical and No evidence of hallucinations/delusions noted Staff Interventions:: thought challenging, motivational interviewing, CBT techniques, strengths perspective, goal setting and taught coping skills (acceptance skills) Client Response:: Pt responded well to session, open to meeting with therapist. Pt reported she has been feeling low and down again and pt reports I don't know why. Therapist gave pt space/time to process her feelings and frustrations and then pt felt willing to explore further. Pt was able to recognize that recently she was on her period which typically triggers worsening mood and hopelessness. Pt also noted that she has been feeling without a community, which has been one of pt's ongoing stressors/triggers during her time in IOP. Pt has been interested in ways to build community, but pt has not felt ready to go to a congregational. Pt was receptive to volunteering and pt noted that she has been thinking of this for some time. Pt shared she has also been struggling with not being able to make decisions, so this leads to things not getting done and procrastination. Pt made the connection that part of her inability to make decisions comes from growing up in a mandaeism environment where choices were consistently made for pt and she was told what to believe. 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 Pt's homework is to choose either to work on decision making or to identify a few places she could volunteer. Risks/Concerns:: Pt denies any active SI, plan, or intent. Pt does report having more hopeless thoughts recently. Progress Toward Goals/Plan:: Progress noted in pt's report of using healthier coping skills more consistently, but pt continues to report mood instability and difficulty challenging her perspective on her own. Pt is receptive during individual sessions, but outside of IOP pt notes that she has difficulty making decisions and giving herself credit. Pt receptive to homework given by therapist this week which is to work on making small decisions and to look into volunteering. Pt will continue IOP tx to prevent decompensation, improve daily functioning, and increase distress tolerance. Time Stopped:: 12:30
--- NOTE | 2024-12-25 09:00 | BH.SGPN.GN ---
Behaviors/Verbalizations/Mental Status: [] Eye contact is good. Motor activity is appropriate. Appearance is casual. Speech is Appropriate. Mood is depressed and irritable. Affect is congruent. Thoughts are linear and logical. No evidence of psychosis. Reviewed daily check in sheet and no reports of suicidal ideations Client Response/Progress/Benefit: [] Pt was an active participant in group discussions. Attentive. She shared with the group a recent social stressor in which she felt a friend was rage-baiting her. Identifies anxious, stress, fear, and sadness related to upcoming holiday season. Struggling to regulate her emotions and ruminates extensivle on current family conflict. Overall feels neutral and numb. Limited progress noted. Benefited from group support, encouragment, and feedback. Will continue in IOP to maintain safety, prevent decompensation, and improve functioning. Narrative Note: []
--- NOTE | 2024-12-25 10:10 | BH.SGPN.GN ---
Behaviors/Verbalizations/Mental Status: [] Pt alert and oriented, casually dressed and groomed. Eye contact good. Motor activity appropriate. Speech within normal limits. Mood: euthymic. Affect: congruent. Thoughts linear, logical, no signs of hallucinations or delusions. Client Response/Progress/Benefit: [] Pt participated when prompted during group discussions. Attentive during psychoeducation on self-sabotage and its impact on mental health. Attentive as peers worked to define self-sabotage and identify reasons individuals perform self-sabotage behaviors (easy route at the time, feel as those we don't deserve any better, FOF, comfortable, etc). Attentive as peers identified the forms of self-sabotage that impact their mental health. Attentive during psychoeducation on types of self-sabotage; Procrastination, perfectionism, self-medication, poor communication,and chronic cancelling. Seemed to benefit from gaining awareness about the self-sabotage. Pt to continue IOP tx to improve emotion regulation, continue setting boundaries, and prevent decompensation.
--- NOTE | 2024-12-25 11:05 | BH.SGPN.GN ---
Behaviors/Verbalizations/Mental Status: [] Eye contact is good. Motor activity is appropriate. Appearance is casual. Speech is Appropriate. Mood is anxious. Affect is congruent. Thoughts are linear and logical. No evidence of psychosis. Client Response/Progress/Benefit: [] Pt responded well to session, engaged and contributing. Pt discussed with group things that contribute to mental wellness life. With peers, pt discussed things that would sabotage one's mental health wellness. Pt identified things pt personally does to sabotage as smoke weed, doomscroll, argue online, and isolate. Pt attentive during psychoeducation on ways to reduce self-sabotage and pt selected journal, DDD, temperature change?as skills that could help pt reduce self-sabotaging behaviors. Pt appeared to benefit from learning skills and gaining awareness of self-sabotaging behaviors. Pt will continue IOP tx to maintain safety, prevent decompensation, and to increase healthy coping. Narrative Note: []
== END 2024-12-26 23:59 ==
LOC: BHIOP 08:06
PROVIDERS: PCP Nurse Practitioner Primary Care; Referring Provider Student in an Organized Health Care Education/Training Program; Visit Provider Student in an Organized Health Care Education/Training Program
DX: F33.2 Major depressive disorder, recurrent severe without psychotic features (principal); F43.10 Post-traumatic stress disorder, unspecified; F63.3 Trichotillomania; F42.9 Obsessive-compulsive disorder, unspecified
CPT/HCPCS: S9480; 90834; 90837; 90853

== ENCOUNTER 2024-12-29 08:33 | Outpatient (RCR) | payer BC, SELFPAY ==
--- NOTE | 2025-01-01 09:00 | BH.SGPN.GN ---
Behaviors/Verbalizations/Mental Status: [] Pt alert and oriented, Casually dressed and groomed. Eye contact fair. Motor activity appropriate. Speech within normal limits. Affect tearful, mood depressed. Thoughts linear, logical, no signs of hallucinations or delusions.Reviewed pt?s symptom tracker today, denies suicidal ideation, plan, and intent.01/01/25 Client Response/Progress/Benefit: []Pt was an active participant in group discussions. Attentive. Per patients daily symptom tracker, pt indicates a 4/5 for depression and a 3/5 for anxiety, with 5 being severe. Pt was tearful and depressed during the group discussion. Pt shared that her mental health positives were getting some chores done, even though they took longer than she was anticipating, and noticing a decrease in over all negative self-talk. Pt reported being able to catch herself when engaging in negative self-talk, and noticing that she has engaged in it less. 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 Pt seemed to benefit from support from peers. Will continue IOP tx to promote healthy coping mechanisms, improve confidence, and prevent decompensation.
--- NOTE | 2025-01-01 10:00 | BH.SGPN.GN ---
Behaviors/Verbalizations/Mental Status: [] Eye contact is good. Motor activity is appropriate. Appearance is casual. Speech is Appropriate. Mood is dysthymic and irritable. Affect is congruent. Thoughts are linear and logical. No evidence of psychosis. Client Response/Progress/Benefit: [] Pt engaged in session AEB client listening attentively to peers and providing input. Attentive and contributed to discussion as group worked on defining?self-confidence?and identifying benefits of?self-confidence which included; increased self-esteem, improved relationships, increased resilience, better adaptive coping, stronger boundaries, helps us try new tasks, decreased depression, more hopeful, and more creative. Also participated during interactive discussion on factors that impact one's self confidence such as trauma, upbringing, economic status, and current/past relationships. Benefited from increased education on?self-confidence?and what effects it. Pt will continue IOP to prevent decompensation, maintain safety, increase healthy coping, and improve functioning. Narrative Note: []
--- NOTE | 2025-01-01 13:08 | BH.MDN_ITS ---
Multi-Disciplinary Note Note 60-min Individual: Time Started:: 11:10 Date: 01/01/25 Purpose of session/treatment goals addressed:: To work on thought challenging strategies and discuss discharge. Eye Contact:: Fair Motor Activity:: Restless Appearance:: Casual Speech:: Soft Mood:: Dysthymic Affect:: Constricted Thoughts:: Linear, Logical and No evidence of hallucinations/delusions noted Staff Interventions:: thought challenging, motivational interviewing, CBT techniques, discharge planning, strengths perspective and goal setting Client Response:: Pt responded well to session, open to meeting with therapist. Pt reported she has been doing okay sharing there have been moments when she accomplishes tasks, but overall motivation is not my thing. Pt noted that she has cleaned some at home and she is less negative than she was last wee k, but she still struggles with lack of follow through and depression. Pt reports she is fearful that when she does not have IOP for routine, she will go back to previous unhelpful patterns. Discussed how pt has made progress in using opposite action, but for sustainable progress, pt has to work on building internal motivation and having other ways to hold herself accountable. Pt reports she wants to volunteer, she just needs to decide where. Pt noted that this will give her structure, purpose, and build community. Pt also plans to go to her mother's for Thanksgiving and pt hopes this helps strengthen support. Pt had some distortions around going and did well with thought challenging. Pt continues to benefit from dialectical thinking as it helps pt see past all or nothing thoughts. Risks/Concerns:: Pt denies any suicidal ideation, plan, or intent. Pt denies any thoughts of . Progress Toward Goals/Plan:: Progress noted in pt's report of using healthier coping skills more consistently, but pt continues to report mood instability that is dependent on external circumstances and difficulty challeng ing her perspective on her own. Pt is receptive during individual sessions, but pt admits that outside IOP she does not follow through with making appointments, phone calls, etc. Pt receptive to setting a goal to go print out a list of volunteer opportunities. Pt acknowledges that she is getting close to discharge and will need to establish aftercare and a routine. Pt will continue IOP tx to promote use of healthy coping skills and increase distress tolerance. Time Stopped:: 12:05
--- NOTE | 2025-01-06 09:00 | BH.SGPN.GN ---
Behaviors/Verbalizations/Mental Status: [] Eye contact is good. Motor activity is appropriate. Appearance is casual. Speech is Appropriate. Mood is dysthymic and irritable. Affect is full. Thoughts are linear and logical. No evidence of psychosis. Reviewed daily check in sheet and no reports of suicidal ideations Client Response/Progress/Benefit: [] Pt participated at times during the group discussions. Attentive. Daily symptom tracker notes 4/5 for agitation and 3/5 for depression. States I was feeling good this morining until she encountered a situational stressor (traffic). This caused irritability. I haven't been the same since. She is ruminating on the stressor as well as her emotional response to the stressor. Group provided feedback, suggestions to reframe, and a growth minded perspective which was beneficial. Limited progress noted. Inconsistent attendance throughout IOP and struggles to use skills independently. Will continue in IOP to maintain safety, increase healthy coping, and improve functioning. Narrative Note: []
--- NOTE | 2025-01-06 10:10 | BH.SGPN.GN ---
Behaviors/Verbalizations/Mental Status: []Pt alert and oriented, neatly dressed and groomed. Eye contact good. Motor activity appropriate. Speech within normal limits. Affect congruent, mood euthymic. Thoughts linear, logical, no signs of hallucinations or delusions. Client Response/Progress/Benefit: [] Pt responded well to session AEB contributing to discussion, taking notes, and listening attentively to others. Group discussed the benefits of managed anger and anger as a secondary emotion. Pt participated in discussion on anger triggers and responses. Group reported outward personal signs of anger as lashing out verbally, crying, and being impulsive. Group Identified examples of anger cycles and as well the emotions that contribute to anger. Appeared to benefit from increased knowledge of the underlying emotions that impact anger and increased self-awareness of the internal and external consequences of anger. Pt will continue IOP tx to promote mood stability, reinforce healthy coping skills, and establish aftercare. Narrative Note: []
--- NOTE | 2025-01-06 13:27 | BH.MDN_ITS ---
Multi-Disciplinary Note Note 45-min Individual: Time Started:: 11:45 Date: 01/06/25 Purpose of session/treatment goals addressed:: To address current stressors and discuss strategies to help cope with these stressors. Another goal was discussing discharge. Eye Contact:: Good Motor Activity:: Appropriate Appearance:: Casual Speech:: Appropriate Mood:: Euthymic Affect:: Full Thoughts:: Linear, Logical and No evidence of hallucinations/delusions noted Staff Interventions:: thought challenging, CBT techniques, discharge planning, strengths perspective and goal setting Client Response:: Pt responded well to session, open to meeting with franci roca. Pt noted that this morning she woke up feeling really good but then she was triggered on her drive to IOP and became highly irritable. Pt processed this stressor during process group today and pt shared she benefitted from the group topic being anger. Pt shared the group normalized the triggers for anger as well as how to cope with those unexpected triggers. Discussed how pt can cope with this things moving forward using dialectical thinking, mindfulness, and a non- judgmental stance on her emotions. Pt shared part of what negatively impacted pt this morning was that she judged herself for feeling irritable. Pt reflected that she has bounced back from that quickly and she is now in a better mood. Pt and therapist reviewed progress as well as maintenance strategies. Maintenance strategies included scheduling tasks each day to help herself and her household, using direct communication with her , making decisions, and thought challenging. Pt reports that her depression and anxiety have decreased since admission and she is currently feeling stable. Risks/Concerns:: Pt denies any active suicidal ideation, plan, or intent. Pt denies any thoughts of . Progress Toward Goals/Plan:: Pt reports she is doing well and pt feels that she is feels more capable to manage her mental health. Pt is scheduled to discharge on 01/08/25 and pt is contemplating attending IOP aftercare. Pt and therapist attempted to call [facility] during session to get individual therapy scheduled, and had to leave a message. Pt will continue IOP tx for one more session to reinforce healthy coping skills and transition effectively to outpatient counseling. Time Stopped:: 12:30
--- NOTE | 2025-01-06 13:55 | BH.AFTERPLAN ---
Aftercare Plan Demographics Treatment End Date:: 01/08/25 Psychiatrist:: Juan Pablo Warner Psychiatrist Office #:: [phone] [facility]/IOP Therapist:: Kayleen Connelly Therapist Phone #:: [phone] Medications Home Medications bupropion HCl 150 mg 24 hr tablet, extended release (Wellbutrin XL) 150 mg PO QAM #90 tabs 01/07/25 venlafaxine 75 mg capsule,extended release 24 hr 75 mg PO DAILY 90 days #90 caps 01/07/25 Plan Details Progress/Aftercare Plan Details:: Elly has responded well to treatment as evidenced by Elly attending IOP sessions and her reduction of DSM-5 scores since admission. Elly was always attentive and receptive to learning during group and individual sessions. Elly actively applied coping skills outside of IOP and reports overall her mood has improved and she is functioning better than she was several months ago. Elly?s overall symptom reduction is 39% since admission with anger decreasing by 40%, depression decreasing by 13%, OCD symptoms decreasing by 29%, and anxiety decreasing by 53%. Elly has increased self-compassion and faced many hard things. Most importantly, Elly has become more assertive, vulnerable, and confident in her abilities. Strategies for Success:: 1. Opposite action! Continue to break that cycle of anxiety, guilt, and depression by not letting emotions be the only drivers of your bus. 2. Remember that thoughts are thoughts NOT facts! You have power in if you give thoughts the time of day or not. 3. self-care! You deserve to take time for you and you also deserve to face the not so fun self-care like setting boundaries with family and giving yourself validation 4. Self-compassion! You are human and you will make a mistake?BUT that doesn?t mean you are a failure or not good enough. Remember there are no bad parts and no bad feelings-it's what you do with them! 5. Continue to practice self-compassion and identify things YOU bring to others! 6. Practice positive self-talk and keep track of your wins. 7. Remember progress isn?t linear! You may have a setback or bump in the road, but that doesn?t mean you?ve lost all progress. 8. self-reflection and self-awareness. 9. Be understanding with yourself and try to see the whole picture, not just the snapshot. 10. Live in the tariq!! Appointments Appointments/Referrals to Other Services:: 1. Follow up with [facility]- please let us know if this does not work out. 2. Follow up with medicaid application 3. [facility] for medication management if you are not able to get on medicaid, they should have a sliding fee scale.
--- NOTE | 2025-01-08 08:39 | BH.DS_ITS ---
Discharge Summary Demographics Date of Admission:: 11/17/24 Discharge Date: 01/08/25 Presenting Problems at Admission:: Pt is a 24-year-old female with a history of MDD, OCD, and trichotillomania. Pt had completed IOP in June 2024 and pt returns to [facility] following a referral from crisis due to suicidal ideations and worsening depression. Pt has evaluated by crisis on 10/28/24 while pt was at the ER at [facility]. Pt's worsening symptoms have been triggered by financial stress, issues with her father, issues with her in-laws, and health issues. At admission, pt endorses a depressed mood, lack of motivation, lack of energy, loss of interest, passive SI, hopelessness, and crying spells. Pt reports inability to complete her ADLs and pt has not been able to work due to her worsening symptoms. 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 Treatment Progress During Treatment & Response: Pt has responded well to treatment as evidenced by Pt attending IOP sessions and her reduction of DSM-5 scores since admission. Pt was always attentive and receptive to learning during group and individual sessions. Pt actively applied coping skills outside of IOP and reports overall her mood has improved and she is functioning better than she was several months ago. Pt?s overall symptom reduction is 39% since admission with anger decreasing by 40%, depression decreasing by 13%, OCD symptoms decreasing by 29%, and anxiety decreasing by 53%. Pt has increased self-compassion and faced many hard things. Most importantly, Pt has become more assertive, vulnerable, and confident in her abilities. Issues Still to be Addressed:: Pt can continue to improve her distress tolerance skills, self-confidence, self-compassion, and thought challenging skills. Pt also wants to explore volunteer work, building relationships to form a community, and building structure. Discharge Recommendations/Instructions:: Pt is currently in the process of applying for Medicaid as pt is about to lose her insurance coverage, so pt is seeking new providers for mental health treatment. Pt and therapist called [facility] to schedule, and pt is waiting for a return call. Pt was given options to follow up with Dr. Warner once she gets her Medicaid as well as [facility] for medication management. Pt has been offered aftercare, but pt is unsure if she will be able to afford it at this time. Discharge Handout
--- NOTE | 2025-01-08 09:00 | BH.SGPN.GN ---
Behaviors/Verbalizations/Mental Status: [] Eye contact is good. Motor activity is appropriate. Appearance is casual. Speech is Appropriate. Mood is euthymic. Affect is full. Thoughts are linear and logical. No evidence of psychosis. Reviewed daily check in sheet and no reports of suicidal ideations Client Response/Progress/Benefit: [] Pt was an active participant in group discussions. Attentive. Daily symptom tracker notes 04/02 for depression. Shared with the group that she is set to discharge successfully today from [facility]. ? I?ve been reflecting on my progress?. Believes that she is more confident in her ability to make her own decisions. Also reports ? looking forward to things again?. Feeling ? hopeful?. Admits to being anxious to be leaving [facility] as the support was very beneficial. Progress noted. Benefited from group support, encouragement, and feedback. Will be discharged from [facility] today Narrative Note: []
--- NOTE | 2025-01-08 10:15 | BH.SGPN.GN ---
Behaviors/Verbalizations/Mental Status: []Pt alert and oriented, neatly dressed and groomed. Eye contact good. Motor activity appropriate. Speech within normal limits. Affect congruent, mood euthymic. Thoughts linear, logical, no signs of hallucinations or delusions. Client Response/Progress/Benefit: [] Pt responded well to session, contributing to discussion and engaged during the activity. Group identified the benefits of change which included: increased confidence, progressing towards goals, and improving mental and physical health. Worked with the group to identify barriers to change, which included: uncomfortable emotions such as anxiety, lack of energy, lack of support, and fear of the unknown. Pt participated along with group in activity where they identified and discussed the emotions related to change. Benefited from increased awareness and understanding of emotions, benefits, and barriers related to change. Will discharge from IOP tx today as pt has accomplished her tx goals and no longer meets? criteria for IOP level of care. ? Narrative Note: []
--- NOTE | 2025-01-08 11:10 | BH.SGPN.GN ---
Behaviors/Verbalizations/Mental Status: []Client alert and oriented, casually dressed and groomed. Eye contact good. Motor activity appropriate. Speech within normal limits. Affect congruent, mood anxious. Thoughts linear, logical, no signs of hallucinations or delusions Client Response/Progress/Benefit: [] Pt responded well to session, attentive. Engaged in psychoeducation and discussion about finishing the stages of change. Did well to process activity and work with group to relate the strategies used to overcome barriers in the activity to managing change in own life. Pt identified a change they would like to make is to start a healthy daily routine. Pt identified currently being in preparation stage for this change. Pt stated goal is to start with getting out of the house and engaging in regular self-care. Appeared to benefit from identifying a small goal to work towards. Pt will continue IOP tx to prevent decompensation, improve consistent use of healthy coping skills, challenge distortions.
== END 2025-01-08 12:17 | disposition home or self-care (01) ==
LOC: BHIOP 08:33
PROVIDERS: PCP Nurse Practitioner Primary Care; Referring Provider Student in an Organized Health Care Education/Training Program; Visit Provider Student in an Organized Health Care Education/Training Program
DX: F33.2 Major depressive disorder, recurrent severe without psychotic features (principal); F43.10 Post-traumatic stress disorder, unspecified; F63.3 Trichotillomania; F42.9 Obsessive-compulsive disorder, unspecified
CPT/HCPCS: S9480; 90834; 90837; 90853